=== PATIENT | male | born 1990 | race African-American/Black ===

== ENCOUNTER 2023-12-02 20:32 | Emergency (ER) | payer MEDICAID ==
[~2023-12-02] VITALS: Ht 180.3 cm; Wt 77.0 kg
[2023-12-02 20:50] VITALS: BP 110/62; PULSE 66; RESP 18; TEMP 99; O2SAT 100
[2023-12-02] MEDS: CYCLOBENZAPRINE 10MG TABLET PO ONE (22:39)
[2023-12-02] MEDS: KETOROLAC 30MG/ML VIAL IM ONE (22:39)
[2023-12-02] MEDS ORDERED: CYCL10TA21 MT (22:49)
[2023-12-02] MEDS ORDERED: NAPR-1176 MT (22:49)
== END 2023-12-02 23:32 | disposition home or self-care (01) ==
LOC: ER 20:32
DX: M54.50 Low back pain, unspecified (principal); V49.49XA Driver injured in collision with other motor vehicles in traffic accident, initial encounter; Y93.89 Activity, other specified; Y92.89 Other specified places as the place of occurrence of the external cause; Y99.8 Other external cause status
CPT/HCPCS: 96372; 99283; J1885; Z7610